=== PATIENT | female | born 1995 | race African-American/Black ===

== ENCOUNTER 2016-11-03 08:53 | Emergency (ER) | payer SELFPAY ==
--- NOTE | 2016-11-03 09:38 | ER Document Report ---
ED GI/ - General Mode of Arrival: Ambulatory Information source: Patient TRAVEL OUTSIDE OF THE [place] IN LAST 30 DAYS: No - HPI Patient complains to provider of: Abdominal pain <DELBERT COLON - Last Filed: 11/03/16 09:33> <NATASHA STAFFORD - Last Filed: 11/03/16 12:31> - General Chief Complaint: Abdominal Pain Stated Complaint: STOMACH PAIN Time Seen by Provider: 11/03/16 09:29 Notes: Patient is a 20 year old female who presents to the ED with complaints of lower abdominal pain, nausea, feelings of dizziness and frequent urination x2 weeks. Patient states she feels like her mouth is very dry. Patient has had some vomiting, 3 times over the past week. Patient denies any diarrhea. Patient states this morning she is mostly dizzy, she feels off balance. She states she has fallen from the dizziness 3 times in the past week, she states she cant keep her eyes open and the room goes dark on her. Patients LMP was 10/07/16. Patient denies dysuria. Patient does add that she feels like her abdomen is more distended than normal and she has a lot of gas and more frequent bowel movement. (DELBERT COLON) - Related Data Allergies/Adverse Reactions: No Known Allergies Allergy (Verified 11/03/16 08:57) Past Medical History - General Information source: Patient - Social History Smoking Status: Unknown if Ever Smoked Family History: Reviewed & Not Pertinent Renal/ Medical History: Denies: Hx Peritoneal Dialysis <DELBERT COLON - Last Filed: 11/03/16 09:33> Review of Systems - Review of Systems Constitutional: No symptoms reported EENT: No symptoms reported Cardiovascular: See HPI, Dizziness Respiratory: No symptoms reported Gastrointestinal: See HPI, Abdomen distended, Abdominal pain, Nausea, Vomiting. denies: Diarrhea Genitourinary: See HPI, Frequency. denies: Dysuria Female Genitourinary: No symptoms reported Musculoskeletal: No symptoms reported Skin: No symptoms reported Hematologic/Lymphatic: No symptoms reported Neurological/Psychological: No symptoms reported <DELBERT COLON - Last Filed: 11/03/16 09:33> Physical Exam - General General appearance: Appears well, Alert In distress: None - HEENT Head: Normocephalic, Atraumatic Eyes: Normal Extraocular movements intact: Yes Pupils: PERRL - Respiratory Respiratory status: No respiratory distress Breath sounds: Normal - Cardiovascular Rhythm: Regular Heart sounds: Normal auscultation Murmur: No - Abdominal Inspection: Normal Distension: No distension Tenderness: Tender - superpubic - Back Back: Normal - Extremities General upper extremity: Normal inspection, Normal ROM General lower extremity: Normal inspection, Normal ROM. No: Edema - Neurological Neuro grossly intact: Yes - Psychological Associated symptoms: Normal affect, Normal mood - Skin Skin Temperature: Warm Skin Moisture: Dry Skin Color: Normal <DELBERT COLON - Last Filed: 11/03/16 09:33> - Vital signs Vitals: Temp Pulse Resp BP Pulse Ox 97.9 F 82 14 137/84 H 98 11/03/16 08:57 11/03/16 08:57 11/03/16 08:57 11/03/16 08:57 11/03/16 08:57 Course <DELBERT COLON - Last Filed: 11/03/16 09:33> - Laboratory Result Diagrams: 11/03/16 09:23 11/03/16 09:23 <NATASHA STAFFORD - Last Filed: 11/03/16 12:31> - Re-evaluation Re-evalutation: 11/03/16 11:08 Pleasant 20-year-old female comes in with some nausea and lower abdominal discomfort. She also reports feeling "dizzy". It was difficult to pin down whether she meant vertigo or near syncopal. With further discussion, it appears she simply means that she feels tired, fatigued. Orthostatics were performed at 11:05 AM by myself. Blood pressure was stable with no drop - heart rate went from 66 to approximately 76. Laboratory testing is unremarkable with normal urine, with no sign of infection. Patient is not . We will obtain an x-ray of the abdomen to further evaluate her sense of distention. 11/03/16 12:27 Abdominal x-ray is unremarkable with a normal gas pattern no obvious masses, and no obstruction. On reexamination, the patient is standing in the room and appears comfortable. Her father is now with her. I have discussed the results with her and her father and the follow-up plan. She has an appointment on Sunday with her primary physician. I will write a prescription for Zofran for nausea. Patient does not feel comfortable going to work currently. I will write a work note through this weekend. I have advised him to return to the emergency department if they have any further urgent concerns. (NATASHA STAFFORD) - Vital Signs Vital signs: Temp Pulse Resp BP Pulse Ox 97.9 F 82 14 123/86 H 100 11/03/16 08:57 11/03/16 08:57 11/03/16 08:57 11/03/16 11:06 11/03/16 09:30 - Laboratory Laboratory results interpreted by me: 11/03/16 11/03/16 09:23 09:51 Total Protein 8.6 H Ur Leukocyte Esterase TRACE H Discharge <DELBERT COLON - Last Filed: 11/03/16 09:33> <NATASHA STAFFORD - Last Filed: 11/03/16 12:31> - Discharge Clinical Impression: Nausea & vomiting, Weakness Condition: Good Disposition: HOME, SELF-CARE Instructions: Vomiting ([facility]), Abdominal Pain ([facility]) Additional Instructions: Follow-up with your primary physician on Sunday as already scheduled. Take Zofran if needed for nausea. Continue to drink plenty of water and eat a simple bland diet. Return to the emergency department if you have worsening pain, if you have fever, if you are unable to eat or drink, or if you have other urgent concerns. Prescriptions: Ondansetron HCl [Zofran 4 mg Tablet] 1 - 2 tab PO Q4H PRN #10 tablet PRN Reason: Forms: Return to Work Scribe Attestation: 11/03/16 12:30 I personally performed the services described in the documentation, reviewed and edited the documentation which was dictated to the scribe in my presence, and it accurately records my words and actions. (NATASHA STAFFORD) Scribe Documentation - Scribe Written by Luciano:: luciano Marquez, 11/03/2016, 932 acting as scribe for :: Yoanna <DELBERT COLON - Last Filed: 11/03/16 09:33>
[2016-11-03 09:45] LABS: ABSOLUTE BASOPHILS # (AUTO) 0.1 10^3/uL (0.0-0.2); ABSOLUTE EOSINOPHILS # (AUTO) 0.2 10^3/uL (0.0-0.6); ABSOLUTE MONOCYTES (AUTO) 0.8 10^3/uL (0.1-1.4); ABSOLUTE NEUT (AUTO) 5.7 10^3/uL (1.7-8.2); BASOPHILS % (AUTO) 1.3 % (0-2); HEMATOCRIT 38.8 % (36.0-47.0); HGB HCT DIFFERENCE 0.2; LYMPHOCYTES % (AUTO) 22.4 % (13-45); MEAN CORPUSCULAR HEMOGLOBIN 28.2 pg (27.0-33.4); MEAN CORPUSCULAR HGB CONC 33.4 g/dL (32.0-36.0); MEAN CORPUSCULAR VOLUME 84 fl (80-97); MONOCYTES % (AUTO) 9.6 % (3-13); RED CELL DISTRIBUTION WIDTH 13.1 % (11.5-14.0); SEGMENTED NEUTROPHILS % (AUTO) 64.7 % (42-78); WHITE BLOOD COUNT 8.8 10^3/uL (4.0-10.5)
[2016-11-03 09:56] LABS: ALANINE AMINOTRANSFERASE 18 U/L (5-35); ALBUMIN 4.6 g/dL (3.7-5.6); ALKALINE PHOSPHATASE 80 U/L (50-135); ANION GAP 10 (5-19); ASPARTATE AMINO TRANSFERASE 21 U/L (5-30); BILIRUBIN,DIRECT 0.4 mg/dL (0.0-0.4); BILIRUBIN,TOTAL 0.7 mg/dL (0.2-1.3); BLOOD UREA NITROGEN 10 mg/dL (7-20); CALCIUM 9.7 mg/dL (8.4-10.2); CARBON DIOXIDE 24 mmol/L (22-30); CHLORIDE 106 mmol/L (98-107); CREATININE RESULT 0.76 mg/dL (0.52-1.25); GLUCOSE 99 mg/dL (75-110); SODIUM 140.1 mmol/L (137-145); TOTAL PROTEIN 8.6 g/dL (6.3-8.2)
[2016-11-03 10:10] LABS: APPEARANCE,URINE CLEAR; BILIRUBIN,URINE NEGATIVE (NEGATIVE); GLUCOSE, URINE NEGATIVE (NEGATIVE); KETONES,URINE NEGATIVE (NEGATIVE); LEUKOCYTE ESTERASE,URINE TRACE (NEGATIVE); NITRITE,URINE NEGATIVE (NEGATIVE); PROTEIN,URINE NEGATIVE (NEGATIVE); URINE SPECIFIC GRAVITY 1.008; UROBILINOGEN,URINE NEGATIVE mg/dL (<2.0)
--- NOTE | 2016-11-03 11:54 | RADIOLOGY REPORT (SQ) ---
EXAM DESCRIPTION: ABDOMEN 2 VIEWS COMPLETED DATE/TIME: 11/03/2016 11:32 am REASON FOR STUDY: Abdominal discomfort and distention COMPARISON: None. NUMBER OF VIEWS: Two views. TECHNIQUE: Supine and erect radiographic images of the abdomen acquired. LIMITATIONS: None. FINDINGS: FREE AIR: None. No abnormal gas collections. LUNG BASES: Clear. BOWEL GAS PATTERN: Nonobstructive pattern. No dilated loops or air fluid levels. CALCIFICATIONS: No suspicious calcifications. SOFT TISSUES: No gross mass or suggestion of organomegaly. HARDWARE: None in the abdomen. BONES: No acute fracture. No worrisome bone lesions. OTHER: No other significant finding. IMPRESSION: NO RADIOGRAPHIC EVIDENCE FOR ACUTE ABDOMINAL DISEASE. TECHNICAL DOCUMENTATION: JOB ID: [id number] [email or web address]- All Rights Reserved
[2016-11-03 12:43] VITALS: BP 119/84
== END 2016-11-03 12:52 | disposition home or self-care (01) ==
LOC: ER 08:53
DX: R10.30 Lower abdominal pain, unspecified (principal); R53.1 Weakness; R42 Dizziness and giddiness; R35.0 Frequency of micturition; R11.2 Nausea with vomiting, unspecified; R68.2 Dry mouth, unspecified; R19.4 Change in bowel habit; R14.0 Abdominal distension (gaseous); Z91.81 History of falling
CPT/HCPCS: 36415; 74020; 80053; 81001; 81025; 85025; 99284

== ENCOUNTER 2016-11-25 07:44 | Emergency (ER) | payer SELFPAY ==
--- NOTE | 2016-11-25 08:36 | ER Document Report ---
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 Patient denies any fevers or chills currently but noted she had a fever on Sunday. Patient denies any vomiting episodes. Patient notes multiple people in the care facility do have C. difficile TRAVEL OUTSIDE OF THE [place] IN LAST 30 DAYS: No - HPI Onset: Other - 3 days Onset/Duration: Intermittent Quality of pain: Cramping Severity: Mild Pain Level: 1 Associated symptoms: Diarrhea Exacerbated by: Denies Relieved by: Denies Similar symptoms previously: No Recently seen / treated by doctor: No - Related Data Allergies/Adverse Reactions: No Known Allergies Allergy (Verified 11/25/16 08:28) Past Medical History - Social History Smoking Status: Never Smoker Cigarette use (# per day): No Chew tobacco use (# tins/day): No Smoking Education Provided: No Frequency of alcohol use: None Drug Abuse: None Family History: Reviewed & Not Pertinent Renal/ Medical History: Denies: Hx Peritoneal Dialysis Surgical Hx: Negative - Immunizations Hx Diphtheria, Pertussis, Tetanus Vaccination: Yes Review of Systems - Review of Systems Notes: REVIEW OF SYSTEMS: CONSTITUTIONAL : Denies fever, chills, or sweats. Denies recent illness. EENT: Denies eye, ear, throat, or mouth pain or symptoms. Denies nasal or sinus congestion or discharge. Denies throat, tongue, or mouth swelling or difficulty swallowing. CARDIOVASCULAR: Denies chest pain. Denies palpitations or racing or irregular heart beat. Denies ankle edema. RESPIRATORY: Denies cough, cold, or chest congestion. Denies shortness of breath, difficulty breathing, or wheezing. GASTROINTESTINAL: Admits to diarrhea GENITOURINARY: Denies difficulty urinating, painful urination, burning, frequency, blood in urine, or discharge. FEMALE GENITOURINARY: Denies vaginal bleeding, heavy or abnormal periods, irregular periods. Denies vaginal discharge or odor. MUSCULOSKELETAL: Denies back or neck pain or stiffness. Denies joint pain or swelling. SKIN: Denies rash, lesions or sores. HEMATOLOGIC : Denies easy bruising or bleeding. LYMPHATIC: Denies swollen, enlarged glands. NEUROLOGICAL: Denies confusion or altered mental status. Denies passing out or loss of consciousness. Denies dizziness or lightheadedness. Denies headache. Denies weakness or paralysis or loss of use of either side. Denies problems with gait or speech. Denies sensory loss, numbness, or tingling. Denies seizures. PSYCHIATRIC: Denies anxiety or stress. Denies depression, suicidal ideation, or homicidal ideation. ALL OTHER SYSTEMS REVIEWED AND NEGATIVE. PHYSICAL EXAMINATION: GENERAL: Well-appearing, well-nourished and in no acute distress. HEAD: Atraumatic, normocephalic. EYES: Pupils equal round and reactive to light, extraocular movements intact, conjunctiva are normal. ENT: Nares patent, oropharynx clear without exudates. Moist mucous membranes. NECK: Normal range of motion, supple without lymphadenopathy LUNGS: Breath sounds clear to auscultation bilaterally and equal. No wheezes rales or rhonchi. HEART: Regular rate and rhythm without murmurs ABDOMEN: Soft, nontender, nondistended abdomen. No guarding, no rebound. No masses appreciated. Female : deferred Musculoskeletal: Normal range of motion, no pitting or edema. No cyanosis. NEUROLOGICAL: Cranial nerves grossly intact. Normal speech, normal gait. Normal sensory, motor exams PSYCH: Normal mood, normal affect. SKIN: Warm, Dry, normal turgor, no rashes or lesions noted. Dictation was performed using [employer] voice recognition software Physical Exam - Vital signs Vitals: Temp Pulse Resp BP Pulse Ox 98.7 F 79 16 128/81 H 96 11/25/16 07:49 11/25/16 07:49 11/25/16 07:49 11/25/16 07:49 11/25/16 07:49 Course - Re-evaluation Re-evalutation: 11/25/16 08:36 Patient overall looks quite well, she is in no distress playing on her cell phone however she has been exposed to C. difficile therefore stool culture has been ordered 11/25/16 09:11 Patient is unable to have a bowel movement here will discharge home with container After performing a Medical Screening Examination, I estimate there is LOW risk for ACUTE APPENDICITIS, BOWEL OBSTRUCTION, ACUTE CHOLECYSTITIS, PERFORATED DIVERTICULITIS, INCARCERATED HERNIA, PANCREATITIS, PELVIC INFLAMMATORY DISEASE, PERFORATED ULCER, ECTOPIC , or TUBO-OVARIAN ABSCESS, thus I consider the discharge disposition reasonable. Also, there is no evidence or peritonitis , sepsis, or toxicity. I have reevaluated this patient multiple times and no significant life threatening changes are noted. The patient and I have discussed the diagnosis and risks, and we agree with discharging home with close follow-up with the understanding that symptoms and presentations can change. We also discussed returning to the Emergency Department immediately if new or worsening symptoms occur. We have discussed the symptoms which are most concerning (e.g., bloody stool, fever, changing or worsening pain, vomiting) that necessitate immediate return. - Vital Signs Vital signs: Temp Pulse Resp BP Pulse Ox 98.7 F 79 16 128/81 H 96 11/25/16 07:49 11/25/16 07:49 11/25/16 07:49 11/25/16 07:49 11/25/16 07:49 Discharge - Discharge Clinical Impression: Diarrhea Qualifiers: Diarrhea type: unspecified type Qualified Code(s): R19.7 - Diarrhea, unspecified Condition: Stable Disposition: HOME, SELF-CARE Instructions: Diarrhea, Nonspecific ([facility]) Additional Instructions: Return immediately if there are any other concerns Prescriptions: Dicyclomine HCl [Bentyl 20 mg Tablet] 20 mg PO QID #40 tablet Forms: Follow-Up Laboratory Testing, Return to Work
[2016-11-25 09:33] VITALS: BP 118/74
== END 2016-11-25 09:25 | disposition home or self-care (01) ==
LOC: ER 07:44
DX: R19.7 Diarrhea, unspecified (principal); R10.9 Unspecified abdominal pain
CPT/HCPCS: 99284

== ENCOUNTER 2017-02-02 19:58 | Emergency (ER) | payer OTHER ==
[2017-02-02] MEDS ORDERED: IBUPROFEN 600 MG TABLET PO ONE (21:23)
--- NOTE | 2017-02-02 21:25 | ER Document Report ---
HPI - HPI Pain Level: 3 Notes: Patient is a 21-year-old female no significant past medical history who presents the ED complaining of nasal congestion/discharge, postnasal drip, left ear pain, intermittent sore throat, dry nonproductive cough 3 days. Patient has been using Tylenol with minimal relief. Patient states that she has noticed that her glands on her left side have become swollen, but have improved over the last couple days. Patient states that she is still eating and drinking without any difficulties. She still urinating normally and having normal bowel movements. P atient denies any recent illness otherwise. She has not had any hoarseness or drooling. Denies any headache, fever, neck pain, chest pain, palpitations, syncope, shortness of breath, wheeze, dyspnea, abdominal pain, nausea/vomiting/diarrhea, dysuria, hematuria, or rash. - ROS Notes: REVIEW OF SYSTEMS: CONSTITUTIONAL : Denies fever, chills, or sweats. Denies recent illness. EENT: see hpi CARDIOVASCULAR: Denies chest pain. Denies palpitations or racing or irregular heart beat. Denies ankle edema. RESPIRATORY: see hpi. Denies shortness of breath, difficulty breathing, or wheezing. GASTROINTESTINAL: Denies abdominal pain or distention. Denies nausea, vomiting , or diarrhea. Denies blood in vomitus, stools, or per rectum. Denies black, tarry stools. Denies constipation. GENITOURINARY: Denies difficulty urinating, painful urination, burning, frequency, blood in urine, or discharge. MUSCULOSKELETAL: Denies back or neck pain or stiffness. Denies joint pain or swelling. SKIN: Denies rash, lesions or sores. NEUROLOGICAL: Denies dizziness or lightheadedness. Denies headache. Denies problems with gait or speech. Denies seizures. ALL OTHER SYSTEMS REVIEWED AND NEGATIVE. Dictation was performed using [employer] voice recognition software Past Medical History - Social History Smoking Status: Never Smoker Family History: Reviewed & Not Pertinent Renal/ Medical History: Denies: Hx Peritoneal Dialysis - Immunizations Hx Diphtheria, Pertussis, Tetanus Vaccination: Yes Vertical Provider Document - CONSTITUTIONAL Agree With Documented VS: Yes Notes: PHYSICAL EXAMINATION: GENERAL: Well-appearing, well-nourished and in no acute distress. A&Ox4 HEAD: Atraumatic, normocephalic. EYES: Pupils equal round and reactive to light, extraocular movements intact, sclera anicteric, conjunctiva are normal. ENT: EAC clear b/l. TM's intact b/l without erythema, fluid, or perforation. Nares patent and with clear discharge. oropharynx clear without exudates. No tonsilar hypertrophy or erythema. Moist mucous membranes. No sinus tenderness. No drooling or hoarseness. Uvula midline. No palatine shift. No tongue protrusion or airway compromise. NECK: Normal range of motion, supple without lymphadenopathy. No rigidity/ meningismus LUNGS: Breath sounds clear to auscultation bilaterally and equal. No wheezes rales or rhonchi. HEART: Regular rate and rhythm without murmurs, rubs, gallops. ABDOMEN: Soft, nontender, nondistended abdomen. No guarding, no rebound. No masses appreciated. Normal bowel sounds present. No CVA tenderness bilaterally. No hepatosplenomegaly. Musculoskeletal: FROM to passive/active. Strength 5+/5. Extremities: No cyanosis, clubbing, or edema b/l. Peripheral pulses 2+. Capillary refill less than 3 seconds. NEUROLOGICAL: Normal speech, normal gait. Normal sensory, motor exams PSYCH: Normal mood, normal affect. SKIN: Warm, Dry, normal turgor, no rashes or lesions noted. - INFECTION CONTROL TRAVEL OUTSIDE OF THE [place] IN LAST 30 DAYS: No - RESPIRATORY O2 Sat by Pulse Oximetry: 98 Course - Re-evaluation Re-evalutation: 02/02/17 21:24 Patient is an afebrile, well-hydrated, 21-year-old female who presents to the ED with acute URI, suspect viral at this time. Vitals are stable. PE is otherwise unremarkable. No imaging or lab testing warranted based on H&P today. Low suspicion for any meningitis, sepsis, peritonsillar/pharyngeal abscess, respiratory compromise, Javy's, or other emergent systemic condition at this time. Patient is aware this condition can change from initial presentation and she needs to monitor symptoms closely. Conservative measures otherwise for symptoms. Recheck with your PCM in 3-5 days. Return to the ED with any worsening/concerning symptoms otherwise as reviewed in discharge. Patient is in agreement. - Vital Signs Vital signs: Temp Pulse Resp BP Pulse Ox 98.3 F 91 19 120/81 98 02/02/17 20:06 02/02/17 20:06 02/02/17 20:06 02/02/17 20:06 02/02/17 20:06 Discharge - Discharge Clinical Impression: Acute URI Condition: Stable Disposition: HOME, SELF-CARE Instructions: Upper Respiratory Illness ([facility]) Additional Instructions: Maintain adequate fluid intake Take meds as directed tylenol/ibuprofen as needed over the counter cold medication as needed for symptoms Humidified air may help F/u: with your PCM in 3-5 days for a recheck Return to the ED with any fever, worsening pain, chest pain, palpitations, syncope, worsening GUERRA, neck pain/stiffness, shortness of breath, wheezing, drooling, trouble swallowing/breathing, abdominal pain, n/v/d, rash, or worsening/concerning symptoms otherwise. Referrals: ALEXANDREA TAYLOR MD [Primary Care Provider] - Follow up in 3-5 days
[2017-02-02 21:52] VITALS: BP 122/87
== END 2017-02-02 21:55 | disposition home or self-care (01) ==
LOC: ER 19:58
DX: J06.9 Acute upper respiratory infection, unspecified (principal); R09.81 Nasal congestion; R09.82 Postnasal drip; H92.02 Otalgia, left ear; J02.9 Acute pharyngitis, unspecified; R05 Cough
CPT/HCPCS: 99283

== ENCOUNTER 2017-02-08 08:38 | Emergency (ER) | payer OTHER ==
--- NOTE | 2017-02-08 09:16 | ER Document Report ---
ED General - General Chief Complaint: Sore Throat Stated Complaint: SORE THROAT Time Seen by Provider: 02/08/17 09:13 Mode of Arrival: Ambulatory Information source: Patient Notes: Patient is a 21 year old female who presents with sore throat, non-productive cough and congestion that started last week. She was seen last week for the same and diagnosed with a viral URI and given supportive treatments. She states today that she awoke and had lower lip swelling and swelling to the side of her face. She states this was not present to begin with. She denies any dental pain associated. She states it is painful to swallow but is tolerating her own secretions and denies any drooling. She states she did eat shrimp yesterday and has had it before without difficulty but this is the only change in diet she has noticed. She denies any changes in medications either. She has not tried any medicine for this at home including Benadryl. Denies any fever, chills, difficulty breathing, shortness of breath, difficulty swallowing , chest pain, vomiting. TRAVEL OUTSIDE OF THE [place] IN LAST 30 DAYS: No - Related Data Allergies/Adverse Reactions: No Known Allergies Allergy (Verified 02/08/17 08:38) Past Medical History - Social History Smoking Status: Never Smoker Chew tobacco use (# tins/day): No Frequency of alcohol use: None Drug Abuse: None Family History: Reviewed & Not Pertinent Patient has suicidal ideation: No Patient has homicidal ideation: No Renal/ Medical History: Denies: Hx Peritoneal Dialysis - Immunizations Hx Diphtheria, Pertussis, Tetanus Vaccination: Yes Review of Systems - Review of Systems Constitutional: See HPI EENT: See HPI Cardiovascular: No symptoms reported Respiratory: See HPI Gastrointestinal: No symptoms reported Genitourinary: No symptoms reported Female Genitourinary: No symptoms reported Musculoskeletal: No symptoms reported Skin: No symptoms reported Hematologic/Lymphatic: No symptoms reported Neurological/Psychological: No symptoms reported Physical Exam - Vital signs Vitals: Temp Pulse Resp BP Pulse Ox 98.6 F 86 16 118/74 98 02/08/17 08:39 02/08/17 08:39 02/08/17 08:39 02/08/17 08:39 02/08/17 08:39 - Notes Notes: PHYSICAL EXAM: CONSTITUTIONAL: Alert and oriented, well-appearing and in no acute distress. No signs are stable. Patient is speaking in full sentences without difficulty. HENT: Normocephalic, atraumatic. Ear canals without erythema or foreign body, TMs pearly mathews with good bony landmarks. Nares clear without erythema, septal hematoma or deviation, airway patent. Oropharynx clear without erythema, tonsilar exudate or malocclusion. Trachea midline. Uvula midline. Moist mucous membranes. Edema to lower lip but no oropharynx edema noted. Patient is tolerating her own secretions. EYES: Pupils equal round and reactive to light, EOM intact. Sclera anicteric, conjunctiva are normal. No entrapment. NECK: supple without lymphadenopathy. No midline tenderness or paraspinous muscle spasms. No step-offs or deformities. ROM intact. No nuchal rigidity, negative Kernig's and Brudzinski's. HEART: Regular rate and rhythm without murmurs. LUNGS: CTAB and equal. No wheezes, rales or rhonchi. EXTREMITIES: Normal range of motion, no pitting edema. No cyanosis. Cap Refill < 3 seconds. NEURO: Cranial nerves grossly intact. Normal sensory/motor exams. PSYCH: Normal mood, normal affect. SKIN: Warm and dry. Normal turgor. No rashes or lesions noted. Course - Re-evaluation Re-evalutation: 02/08/17 09:27 Patient seen and examined. Patient is alert and oriented, vital signs are stable, she is afebrile and not tachycardic. She is speaking in full sentences without difficulty and tolerating her own secretions. She denies any difficulty breathing or vomiting. The swelling to lip and left side of face is consistent with edema associated with allergic reaction. Could be that shrimp is a implicating factor here. Given Benadryl, H2 aimee and steroids here. Patient states she is feeling better after medications. Improvement of swelling to lip noted. Again patient did not have any respiratory distress, difficulty breathing, swallowing, rash or vomiting while here. Do not feel this is an anaphylaxis reaction. Advised that she should avoid shellfish in the event that a repeat event could be worse than this one. Patient monitored for some time in the emergency department and again showed no signs of distress. Will discharge with prescriptions for histamine aimee and steroids. Return precautions given. At this time, will discharge with return precautions and follow-up recommendations. Verbal discharge instructions given at the bedside and opportunity for questions given. Medication warnings reviewed. Patient is in agreement with this plan and has verbalized understanding of return precautions and the need for primary care follow-up in the next 24-72 hours. - Vital Signs Vital signs: Temp Pulse Resp BP Pulse Ox 97.9 F 75 18 115/77 98 02/08/17 11:44 02/08/17 11:44 02/08/17 11:44 02/08/17 11:44 02/08/17 11:44 Discharge - Discharge Clinical Impression: Viral URI with cough Allergic reaction Qualifiers: Encounter type: initial encounter Qualified Code(s): T78.40XA - Allergy, unspecified, initial encounter Condition: Stable Disposition: HOME, SELF-CARE Additional Instructions: ACUTE ALLERGIC REACTION: Your symptoms are due to an allergic reaction. Allergy can cause hives, swelling of the hands, feet, and face, hoarseness, and difficulty swallowing or breathing. It may be due to exposure to medication, animal dander, foods, infection, or insect bites. Medication is a common cause, even when prior use of this same medication caused no problems. Acute treatment may include adrenalin and antihistamines. Usually, the specific allergic agent can't be identified unless repeated episodes occur. Home treatment includes the following: (1) Stop any suspicious medications. This will be discussed with you. (2) Oral antihistamines for the next four to five days. Example, diphenhydramine (Benadryl) every four hours. (3) You may also use cimetidine (Tagamet), ranitidine (Zantac), or famotidine ( Pepcid) every four hours if diphenhydramine is not controlling itching and hives. (4) Avoid aspirin until the hives completely disappear. (5) Avoid hot baths or showers until the hives are completely gone. Call the doctor if faintness, difficulty swallowing, tightness in the chest , or wheezing occurs. STEROID MEDICATION: You have been given a medicine of the cortisone/steroid class. This medication is used to control inflammation or allergy. It is usually only given for a short period of time, until the acute process subsides. There are usually no side effects from short-term use of cortisone-like medications. Some persons feel an increased sense of well-being and are not sleepy at bedtime. Long-term use of cortisone medications is best avoided, unless required for a severe condition. If your condition does not remit, or relapses after the course of corticosteroid medication, you should consult your physician. ACID-SUPPRESSING MEDICATION: You have a prescription for medicine which reduces the stomach's secretion of acid. Examples include Zantac, Tagament, and Pepcid. These drugs are often used to allow healing of ulcers or esophagitis. They may be needed to prevent recurrence of ulcers in some patients, or to prevent damage from acid reflux in the esophagus. Take all medication as prescribed, even after the pain is gone. Regular antacids may be added as needed if you have symptoms while taking this medicine. These medications sometimes are prescribed for allergic reactions because they have anti-histaminic effects and relieve the rash and itching of the reaction. There are usually no side effects from this medication. But, in rare cases and particularly in the elderly, serious problems can occur. Contact your doctor if there is fever, rash, hallucinations, confusion, or unusual bruising. Contact your doctor at once if you develop lightheadedness, black or bloody stool, or bloody vomitus. ANTIHISTAMINES: An antihistamine has been given and/or prescribed to control your symptoms. Antihistamines are used for many reasons, including itching, watering eyes, runny nose, allergic swelling, hives, and insect stings. Antihistamines may cause drowsiness, especially with the first dose. Do not operate machinery or drive while under the effects of the medication. Other common side effects include dry mouth and eyes. In older persons, antihistamines can occasionally cause urinary retention, constipation, and trouble focusing the eyes. Do not combine the medication with alcohol, or with any other medication without talking to your doctor. USE OF DIPHENHYDRAMINE: The use of diphenhydramine (Benadryl) has been recommended to control allergic symptoms. The 25 mg strength is available over- the-counter, as well as the elixir. This antihistamine is used for many symptoms. It's useful for itching, watering eyes and nose, allergic swelling, hives, and insect stings. The medication can be repeated four times daily. Age Elixir (12.5 mg/tsp) 25 mg pill 2-3 yr 1/2 tsp 4-8 yr 1 tsp 9-14 yr 2 tsp one tab adult 1-2 tabs Antihistamines may cause drowsiness, especially with the first dose. Do not operate machinery or drive while under the effects of the medication. Do not combine the medication with alcohol, or with any other medication without talking to your doctor. FOLLOW-UP CARE: If you have been referred to a physician for follow-up care, call the physician s office for an appointment as you were instructed or within the next two days. If you experience worsening or a significant change in your symptoms, notify the physician immediately or return to the Emergency Department at any time for re-evaluation. UPPER RESPIRATORY ILLNESS: You have a viral infection of the respiratory passages -- a "cold." This common infection causes nasal congestion, drainage, and often sore throat and cough. It is highly contagious. The disease usually lasts about 10 to 14 days. There is no "cure" for the viral infection -- it must run its course. If there is a complication, such as bacterial infection in the nose, sinuses, middle ear, or bronchial tubes, antibiotics may be required. The antibiotics won't affect the virus. Drink plenty of fluids. A humidifier may help. An expectorant medication or decongestant may make you more comfortable. Use acetaminophen or ibuprofen for fever or aches. See the doctor if fever persists over two days, if there is any significant worsening of your symptoms, or if you simply fail to improve as expected. BRONCHOSPASM: You have tightness in the bronchial tubes, called bronchospasm. This often occurs with bronchial infections. Allergies, inhaled chemicals, and polluted or cold air can also provoke bronchospasm. It's more likely in patients with asthma in the family. Emergency treatment of bronchospasm may include adrenaline shots or bronchodilator aerosol. You may feel lightheaded and have a rapid pulse for an hour or two. Rest and get plenty of fluids. At home, we'll treat you with a bronchodilator inhaler. Antibiotics and corticosteroids may be required for some patients. Until you recover, avoid chemical fumes, dusts, pollens, and exercising in very cold or dry air. If you smoke, stop now!! If you develop a fever, increased wheezing, chest pain, or severe shortness of breath, you should contact the doctor immediately. STEROID MEDICATION: You have been given an injection of or oral medicine of the cortisone/ steroid class. This medication is used to control inflammation or allergy. Reinaldo t is usually only given for a short period of time, until the acute process subsides. There are usually no side effects from short-term use of cortisone-like medications. Some persons feel an increased sense of well-being and are not sleepy at bedtime. Long-term use of cortisone medications is best avoided, unless required for a severe condition. If your condition does not remit, or relapses after the course of corticosteroid medication, you should consult your physician. USE OF ACETAMINOPHEN (Tylenol): Acetaminophen may be taken for pain relief or fever control. It's much safer than aspirin, offering a wider range of "safe" dosages. It is safe during . Some brand names are Tylenol, Panadol, Datril, Anacin 3, Tempra, and Liquiprin. Acetaminophen can be repeated every four hours. The following are maximum recommended dosages: >89 pounds or adults 650 mg to 900 mg Acetaminophen can be repeated every four hours. Maximum dose not to exceed 4000 mg a day. SMOKING: If you smoke, you should stop smoking. The tar and chemicals in cigarette smoke are harmful. Smoking has been shown to cause: emphysema chronic bronchitis lung cancer mouth and throat cancer stomach and pancreas cancer premature aging defects In addition, smoking increases ear and lung infections in children of smokers. FOLLOW-UP CARE: If you have been referred to a physician for follow-up care, call the physician s office for an appointment as you were instructed or within the next two days. If you experience worsening or a significant change in your symptoms, notify the physician immediately or return to the Emergency Department at any time for re-evaluation. Prescriptions: Amox Tr/Potassium Clavulanate [Augmentin 875-125 Tablet] 1 tab PO BID 7 Days tablet Diphenhydramine HCl [Benadryl] 25 mg PO Q6H PRN #15 capsule PRN Reason: Itching Prednisone [Deltasone 20 mg Tablet] 3 tab PO DAILY 5 Days tablet Ranitidine HCl [Zantac 150 mg Tablet] 150 mg PO BID #30 tablet Forms: Return to Work
[2017-02-08] MEDS ORDERED: DIPHENHYDRAMINE HCL 50 MG CAPSULE PO ONE (09:26)
[2017-02-08] MEDS ORDERED: RANITIDINE HCL SYRUP 150 MG/10 ML UDCUP PO ONE (09:26)
[2017-02-08] MEDS ORDERED: PREDNISONE 20 MG TABLET PO ONE (10:37)
[2017-02-08 11:45] VITALS: BP 115/77
== END 2017-02-08 11:45 | disposition home or self-care (01) ==
LOC: ER 08:38
DX: J02.8 Acute pharyngitis due to other specified organisms (principal); B97.89 Other viral agents as the cause of diseases classified elsewhere; R05 Cough; T78.40XA Allergy, unspecified, initial encounter; R22.0 Localized swelling, mass and lump, head; X58.XXXA Exposure to other specified factors, initial encounter
CPT/HCPCS: 99283; 87070; 87880; 87077; J7512; J3490

== ENCOUNTER 2017-03-17 17:11 | Emergency (ER) | payer OTHER ==
--- NOTE | 2017-03-17 18:05 | ER Document Report ---
ED Medical Screen (RME) - General Chief Complaint: Abdominal Pain Stated Complaint: STOMACH PAIN Time Seen by Provider: 03/17/17 18:01 Mode of Arrival: Ambulatory Information source: Patient TRAVEL OUTSIDE OF THE [place] IN LAST 30 DAYS: No - HPI Notes: 03/17/17 18:03 21-year-old female with LMP January 11 presents with lower abdominal pain for the last day. Pain is in the lower quadrants left and right less so in the middle. She has had some mild spotting of blood. Denies diarrhea but has been having some intermittent nausea and vomiting. No dysuria or hematuria. No upper abdominal discomfort. She has taken multiple home tests that are positive. She is on Depakote but states normally she has fairly regular periods. Pain is sharp in nature. There is no back discomfort. No dysuria or hematuria. 03/17/17 18:04 03/17/17 18:05 I have greeted and performed a rapid initial assessment of this patient. A comprehensive ED assessment with additional diagnostic/treatment considerations , analysis of diagnostic testing and completion of the medical decision making process will be conducted by additional ED providers. - Related Data Allergies/Adverse Reactions: No Known Allergies Allergy (Verified 02/08/17 08:38) Past Medical History Renal/ Medical History: Denies: Hx Peritoneal Dialysis - Immunizations Hx Diphtheria, Pertussis, Tetanus Vaccination: Yes Physical Exam - Vital signs Vitals: Temp Pulse Resp BP Pulse Ox 98.9 F 109 H 14 136/81 H 97 03/17/17 17:27 03/17/17 17:27 03/17/17 17:27 03/17/17 17:27 03/17/17 17:27 Course - Vital Signs Vital signs: Temp Pulse Resp BP Pulse Ox 98.9 F 109 H 14 136/81 H 97 03/17/17 17:27 03/17/17 17:27 03/17/17 17:27 03/17/17 17:27 03/17/17 17:27
[2017-03-17 19:14] LABS: ABSOLUTE BASOPHILS # (AUTO) 0.1 10^3/uL (0.0-0.2); ABSOLUTE EOSINOPHILS # (AUTO) 0.2 10^3/uL (0.0-0.6); ABSOLUTE LYMPHOCYTES (AUTO) 2.1 10^3/uL (0.5-4.7); ABSOLUTE MONOCYTES (AUTO) 1.2 10^3/uL (0.1-1.4); ABSOLUTE NEUT (AUTO) 11.9 10^3/uL (1.7-8.2); BASOPHILS % (AUTO) 0.6 % (0-2); EOSINOPHILS % (AUTO) 1.1 % (0-6); HEMOGLOBIN 12.7 g/dL (12.0-15.5); LYMPHOCYTES % (AUTO) 13.5 % (13-45); MEAN CORPUSCULAR HEMOGLOBIN 27.8 pg (27.0-33.4); MEAN CORPUSCULAR HGB CONC 33.5 g/dL (32.0-36.0); MEAN CORPUSCULAR VOLUME 83 fl (80-97); MONOCYTES % (AUTO) 7.8 % (3-13); PLATELET COUNT 335 10^3/uL (150-450); RED BLOOD COUNT 4.58 10^6/uL (3.72-5.28); RED CELL DISTRIBUTION WIDTH 13.3 % (11.5-14.0); TOTAL CELLS COUNTED % (AUTO) 100 %; WHITE BLOOD COUNT 15.4 10^3/uL (4.0-10.5)
[2017-03-17 19:31] LABS: APPEARANCE,URINE SLIGHTLY-CLOUDY; BILIRUBIN,URINE NEGATIVE (NEGATIVE); COLOR,URINE YELLOW; GLUCOSE, URINE NEGATIVE (NEGATIVE); KETONES,URINE 20 mg/dL (NEGATIVE); LEUKOCYTE ESTERASE,URINE MODERATE (NEGATIVE); NITRITE,URINE NEGATIVE (NEGATIVE); PROTEIN,URINE NEGATIVE (NEGATIVE)
--- NOTE | 2017-03-17 20:37 | ER Document Report ---
ED General - General Chief Complaint: Abdominal Pain Stated Complaint: STOMACH PAIN Time Seen by Provider: 03/17/17 18:01 Mode of Arrival: Ambulatory Notes: 21-year-old female patient to the emergency department chief complaint of lower abdominal pain. Intermittent spotting. Some nausea. Thinks that she may be . No prior medical history. No prior surgeries. Not on any medications. Took 7 home tests that were positive. TRAVEL OUTSIDE OF THE [place] IN LAST 30 DAYS: No - HPI Onset: Yesterday - Related Data Allergies/Adverse Reactions: No Known Allergies Allergy (Verified 02/08/17 08:38) Past Medical History - General Information source: Patient - Social History Smoking Status: Never Smoker Chew tobacco use (# tins/day): No Frequency of alcohol use: None Drug Abuse: None Lives with: Family Family History: Reviewed & Not Pertinent Patient has suicidal ideation: No Patient has homicidal ideation: No Renal/ Medical History: Denies: Hx Peritoneal Dialysis - Immunizations Hx Diphtheria, Pertussis, Tetanus Vaccination: Yes Review of Systems - Review of Systems Constitutional: No symptoms reported EENT: No symptoms reported Cardiovascular: No symptoms reported Respiratory: No symptoms reported Gastrointestinal: No symptoms reported, Abdominal pain Genitourinary: No symptoms reported Female Genitourinary: No symptoms reported, , Vaginal bleeding Musculoskeletal: No symptoms reported Skin: No symptoms reported Hematologic/Lymphatic: No symptoms reported Neurological/Psychological: No symptoms reported Physical Exam - Vital signs Vitals: Temp Pulse Resp BP Pulse Ox 98.9 F 109 H 14 136/81 H 97 03/17/17 17:27 03/17/17 17:27 03/17/17 17:27 03/17/17 17:27 03/17/17 17:27 Interpretation: Normal - General General appearance: Appears well, Alert - HEENT Head: Normocephalic, Atraumatic Eyes: Normal Pupils: PERRL - Respiratory Respiratory status: No respiratory distress Chest status: Nontender Breath sounds: Normal Chest palpation: Normal - Cardiovascular Rhythm: Regular Heart sounds: Normal auscultation Murmur: No - Abdominal Inspection: Normal Distension: No distension Bowel sounds: Normal Tenderness: Nontender Organomegaly: No organomegaly - Back Back: Normal, Nontender - Extremities General upper extremity: Normal inspection, Nontender, Normal color, Normal ROM , Normal temperature General lower extremity: Normal inspection, Nontender, Normal color, Normal ROM , Normal temperature, Normal weight bearing. No: Lawson's sign - Neurological Neuro grossly intact: Yes Cognition: Normal Orientation: AAOx4 Rina Coma Scale Eye Opening: Spontaneous Rina Coma Scale Verbal: Oriented Rina Coma Scale Motor: Obeys Commands [place] Coma Scale Total: 15 Speech: Normal Motor strength normal: LUE, RUE, LLE, RLE Sensory: Normal - Psychological Associated symptoms: Normal affect, Normal mood - Skin Skin Temperature: Warm Skin Moisture: Dry Skin Color: Normal Course - Re-evaluation Re-evalutation: 03/17/17 21:34 This is a 21-year-old female well-appearing in no acute distress. RhoGam workup ordered. Ultrasound ordered. Ultrasound shows intrauterine . RhoGam given. Will give info for OB and DC at this time. - Vital Signs Vital signs: Temp Pulse Resp BP Pulse Ox 98.9 F 109 H 14 136/81 H 97 03/17/17 17:27 03/17/17 17:27 03/17/17 17:27 03/17/17 17:27 03/17/17 17:27 - Laboratory Result Diagrams: 03/17/17 18:41 Laboratory results interpreted by me: 03/17/17 03/17/17 18:41 18:41 WBC 15.4 H Absolute Neutrophils 11.9 H Urine Ketones 20 H Urine Urobilinogen 2.0 H Ur Leukocyte Esterase MODERATE H Urine HCG, Qual POSITIVE H Discharge - Discharge Clinical Impression: First trimester Abdominal pain during Qualifiers: Trimester: first trimester Qualified Code(s): O26.891 - Other specified related conditions, first trimester Disposition: HOME, SELF-CARE Instructions: Abdominal Pain ([facility]) Additional Instructions: You are . care is best started as early in as possible. If you're unsure about continuing this , you should discuss this with your physician or with email deployment specialist at [facility]. You should take only medications approved by your physician. Acetaminophen can safely be taken for minor pains. As a rule, medication for chronic conditions such as asthma or seizures can safely be continued. You should discuss with the physician every medicine you take. Any regular exercise program can be continued. Talk to your physician, however, before engaging in competitive or demanding sports. Alcohol, smoking, and "street drugs" are dangerous to your baby. Cocaine is especially dangerous. Don't use any illicit drugs! Referrals: DANYELLE LOPEZ MD [ACTIVE STAFF] - Follow up in 1 week
--- NOTE | 2017-03-17 21:55 | RADIOLOGY REPORT (SQ) ---
EXAM DESCRIPTION: U/S OB TRANSVAGINAL W/O DOP COMPLETED DATE/TIME: 03/17/2017 9:05 pm REASON FOR STUDY: + hcg, lower abd pain and spotting COMPARISON: None. TECHNIQUE: Transvaginal static and realtime grayscale images acquired of the pelvis. Additional andie cted spectral and color Doppler images recorded. All images stored on PACs. bHCG: Not ordered LIMITATIONS: None. FINDINGS: FETUS: Living intrauterine . EGA: 8 weeks, 2 days ARTURO: 10/25/2017 FHR: 153 beats per minute. SUBCHORIONIC BLEED: No SIZE OF BLEED: Not applicable. UTERUS: No masses. No anomalies. CERVICAL LENGTH: 3.0 cm Closed. RIGHT ADNEXA: Ovary not identified. No adnexal free fluid. No adnexal masses. LEFT ADNEXA: Ovary not identified. No adnexal free fluid. No adnexal masses. FREE FLUID: None. OTHER: No other significant finding. IMPRESSION: LIVING INTRAUTERINE . EGA 8 weeks, 2 days Trimester of : First - 0 to 13 weeks. TECHNICAL DOCUMENTATION: JOB ID: [id number] [employer]- All Rights Reserved
[2017-03-17 23:44] VITALS: BP 140/86
== END 2017-03-17 22:33 | disposition home or self-care (01) ==
LOC: ER 17:11
DX: O26.891 Other specified pregnancy related conditions, first trimester (principal); R10.9 Unspecified abdominal pain; R11.0 Nausea; Z3A.08 8 weeks gestation of pregnancy
CPT/HCPCS: 99284; 86900; 86901; 36415; 86850; 85025; 81025; 81001; 76817; J2790

== ENCOUNTER 2017-05-02 10:10 | Emergency (ER) | payer OTHER, MEDICAID ==
[2017-05-02] MEDS ORDERED: NORMAL SALINE 1000 ML 1,000 ML IV ONE (11:01)
--- NOTE | 2017-05-02 11:02 | ER Document Report ---
ED Medical Screen (RME) - General Chief Complaint: Fainting Stated Complaint: DIZZY Time Seen by Provider: 05/02/17 11:00 Notes: Patient states for several days she has been having "blackout spells". She states whenever she stands up she will get very lightheaded and sometimes causes her to fall down. She states she comes in today because she had an episode at work where she felt lightheaded and "blacked out". And fell down. She denies any vaginal bleeding. She states she is 14 weeks . She has had a normal ultrasound approximate 2 weeks ago she states. No chronic medical problems. She denies any significant pain or shortness of breath. TRAVEL OUTSIDE OF THE [place] IN LAST 30 DAYS: No - Related Data Allergies/Adverse Reactions: No Known Allergies Allergy (Verified 02/08/17 08:38) Past Medical History Renal/ Medical History: Denies: Hx Peritoneal Dialysis - Immunizations Hx Diphtheria, Pertussis, Tetanus Vaccination: Yes Physical Exam - Vital signs Vitals: Temp Pulse Resp BP Pulse Ox 98.1 F 96 20 115/73 98 05/02/17 10:44 05/02/17 10:44 05/02/17 10:44 05/02/17 10:44 05/02/17 10:44 Course - Vital Signs Vital signs: Temp Pulse Resp BP Pulse Ox 98.1 F 96 20 115/73 98 05/02/17 10:44 05/02/17 10:44 05/02/17 10:44 05/02/17 10:44 05/02/17 10:44 Doctor's Discharge - Discharge Referrals: KATYA STEWARD MD [Primary Care Provider] - Follow up as needed
[2017-05-02 11:53] LABS: ABSOLUTE EOSINOPHILS # (AUTO) 0.1 10^3/uL (0.0-0.6); ABSOLUTE LYMPHOCYTES (AUTO) 1.8 10^3/uL (0.5-4.7); ABSOLUTE MONOCYTES (AUTO) 1.1 10^3/uL (0.1-1.4); ABSOLUTE NEUT (AUTO) 11.4 10^3/uL (1.7-8.2); BASOPHILS % (AUTO) 0.3 % (0-2); HEMATOCRIT 37.4 % (36.0-47.0); HEMOGLOBIN 12.6 g/dL (12.0-15.5); LYMPHOCYTES % (AUTO) 12.3 % (13-45); MEAN CORPUSCULAR HEMOGLOBIN 27.9 pg (27.0-33.4); MEAN CORPUSCULAR HGB CONC 33.5 g/dL (32.0-36.0); MEAN CORPUSCULAR VOLUME 83 fl (80-97); MONOCYTES % (AUTO) 7.5 % (3-13); PLATELET COUNT 316 10^3/uL (150-450); RED CELL DISTRIBUTION WIDTH 13.3 % (11.5-14.0); SEGMENTED NEUTROPHILS % (AUTO) 78.9 % (42-78); TOTAL CELLS COUNTED % (AUTO) 100 %; WHITE BLOOD COUNT 14.4 10^3/uL (4.0-10.5)
--- NOTE | 2017-05-02 11:54 | ER Document Report ---
ED General - General Chief Complaint: Fainting Stated Complaint: DIZZY Time Seen by Provider: 05/02/17 11:00 TRAVEL OUTSIDE OF THE [place] IN LAST 30 DAYS: No - HPI Patient complains to provider of: syncope Notes: Patient states for several days she has been having "blackout spells". She states whenever she stands up she will get very lightheaded and sometimes causes her to fall down. She states she comes in today because she had an episode at work where she felt lightheaded and "blacked out". And fell down. She denies any vaginal bleeding. She states she is 14 weeks . She has had a normal ultrasound approximate 2 weeks ago she states. No chronic medical problems. She denies any significant pain or shortness of breath. - Related Data Allergies/Adverse Reactions: No Known Allergies Allergy (Verified 05/02/17 12:15) Past Medical History - Social History Smoking Status: Never Smoker Chew tobacco use (# tins/day): No Frequency of alcohol use: None Drug Abuse: None Family History: Reviewed & Not Pertinent Patient has suicidal ideation: No Patient has homicidal ideation: No Renal/ Medical History: Denies: Hx Peritoneal Dialysis - Immunizations Hx Diphtheria, Pertussis, Tetanus Vaccination: Yes Review of Systems - Review of Systems Notes: REVIEW OF SYSTEMS: CONSTITUTIONAL: -fevers, -chills EENT: -eye pain, -difficulty swallowing, -nasal congestion CARDIOVASCULAR: -chest pain, -syncope. RESPIRATORY: -cough, -SOB GASTROINTESTINAL: -abdominal pain, -nausea, -vomiting, -diarrhea GENITOURINARY: -dysuria, -hematuria MUSCULOSKELETAL: -back pain, -neck pain SKIN: -rash or skin lesions. HEMATOLOGIC: -easy bruising or bleeding. LYMPHATIC: -swollen, enlarged glands. NEUROLOGICAL: -altered mental status or loss of consciousness, -headache, - neurologic symptoms PSYCHIATRIC: -anxiety, -depression. ALL OTHER SYSTEMS REVIEWED AND NEGATIVE. Physical Exam - Vital signs Vitals: Temp Pulse Resp BP Pulse Ox 98.1 F 96 20 115/73 98 05/02/17 10:44 05/02/17 10:44 05/02/17 10:44 05/02/17 10:44 05/02/17 10:44 - Notes Notes: PHYSICAL EXAMINATION: GENERAL: Well-appearing, well-nourished and in no acute distress. HEAD: Atraumatic, normocephalic. EYES: Pupils equal round and reactive to light, extraocular movements intact, sclera anicteric, conjunctiva are normal. ENT: nares patent, oropharynx clear without exudates. Moist mucous membranes. NECK: Normal range of motion, supple without lymphadenopathy LUNGS: Breath sounds clear to auscultation bilaterally and equal. No wheezes rales or rhonchi. HEART: Regular rate and rhythm without murmurs ABDOMEN: Soft, nontender, normoactive bowel sounds. No guarding, no rebound. No masses appreciated. EXTREMITIES: Normal range of motion, no pitting or edema. No cyanosis. NEUROLOGICAL: Cranial nerves grossly intact. Normal speech, normal gait. Normal sensory and motor exams. PSYCH: Normal mood, normal affect. SKIN: Warm, Dry, normal turgor, no rashes or lesions noted. Course - Re-evaluation Re-evalutation: 05/02/17 12:40 Well-appearing female no acute distress interacting appropriately no acute distress negative orthostatics, given fluid resuscitation. Extensive lab work is no anemia no urinary tract infection was a dirty catch. Chest x-ray unremarkable EKG reassuring. Will discharge home improved follow-up with ENVIRONMENTAL ASSOCIATE - Vital Signs Vital signs: Temp Pulse Resp BP Pulse Ox 98.1 F 96 20 115/73 98 05/02/17 10:44 05/02/17 10:44 05/02/17 10:44 05/02/17 10:44 05/02/17 10:44 - Laboratory Result Diagrams: 05/02/17 11:22 05/02/17 11:22 Laboratory results interpreted by me: 05/02/17 05/02/17 05/02/17 11:22 11:22 11:22 WBC 14.4 H Seg Neutrophils % 78.9 H Lymphocytes % 12.3 L Absolute Neutrophils 11.4 H Total Protein 8.6 H Urine Urobilinogen 2.0 H Ur Leukocyte Esterase MODERATE H - EKG Interpretation by Me Additional EKG results interpreted by me: 05/02/17 12:39 Normal sinus rhythm 85 bpm, no ST elevation or depression, normal QRS, normal MN , normal QTC Discharge - Discharge Clinical Impression: Syncope Qualifiers: Syncope type: vasovagal syncope Qualified Code(s): R55 - Syncope and collapse Condition: Good Instructions: Syncopal Episode ([facility]) Additional Instructions: See your ENVIRONMENTAL ASSOCI[facility] Referrals: KATYA STEWARD MD [Primary Care Provider] - Follow up as needed
[2017-05-02 11:56] LABS: APPEARANCE,URINE SLIGHTLY-CLOUDY; BILIRUBIN,URINE NEGATIVE (NEGATIVE); COLOR,URINE YELLOW; GLUCOSE, URINE NEGATIVE (NEGATIVE); KETONES,URINE NEGATIVE (NEGATIVE); LEUKOCYTE ESTERASE,URINE MODERATE (NEGATIVE); NITRITE,URINE NEGATIVE (NEGATIVE); PROTEIN,URINE NEGATIVE (NEGATIVE); URINE SPECIFIC GRAVITY 1.016
[2017-05-02 12:09] LABS: ALANINE AMINOTRANSFERASE 19 U/L (9-52); ALBUMIN 4.6 g/dL (3.5-5.0); ALKALINE PHOSPHATASE 65 U/L (38-126); ANION GAP 13 (5-19); ASPARTATE AMINO TRANSFERASE 16 U/L (14-36); BILIRUBIN,DIRECT 0.3 mg/dL (0.0-0.4); BILIRUBIN,TOTAL 0.9 mg/dL (0.2-1.3); BLOOD UREA NITROGEN 7 mg/dL (7-20); CALCIUM 10.2 mg/dL (8.4-10.2); CARBON DIOXIDE 22 mmol/L (22-30); CHLORIDE 104 mmol/L (98-107); GLUCOSE 77 mg/dL (75-110); POTASSIUM 3.9 mmol/L (3.6-5.0); SODIUM 139.3 mmol/L (137-145); TOTAL PROTEIN 8.6 g/dL (6.3-8.2)
--- NOTE | 2017-05-02 12:28 | RADIOLOGY REPORT (SQ) ---
EXAM DESCRIPTION: CHEST PA/LAT COMPLETED DATE/TIME: 05/02/2017 12:20 pm REASON FOR STUDY: syncope COMPARISON: None. EXAM PARAMETERS: NUMBER OF VIEWS: two views TECHNIQUE: Digital Frontal and Lateral radiographic views of the chest acquired. RADIATION DOSE: NA LIMITATIONS: none FINDINGS: LUNGS AND PLEURA: No opacities, masses or pneumothorax. No pleural effusion. MEDIASTINUM AND HILAR STRUCTURES: No masses or contour abnormalities. HEART AND VASCULAR STRUCTURES: Heart normal size. No evidence for failure. BONES: No acute findings. HARDWARE: None in the chest. OTHER: No other significant finding. IMPRESSION: NO SIGNIFICANT RADIOGRAPHIC FINDING IN THE CHEST. TECHNICAL DOCUMENTATION: JOB ID: [id number] [employer]- All Rights Reserved Reading location - IP/workstation name: [facility]
[2017-05-02 12:43] VITALS: BP 110/70
--- NOTE | 2017-05-02 22:12 | EKG REPORT ---
SEVERITY:- NORMAL ECG - SINUS RHYTHM : Confirmed by: Ciaran Hutton 02-May-2017 22:11:26
== END 2017-05-02 12:53 | disposition home or self-care (01) ==
LOC: ER 10:10
DX: R55 Syncope and collapse (principal); R42 Dizziness and giddiness; W19.XXXA Unspecified fall, initial encounter; Z3A.14 14 weeks gestation of pregnancy
CPT/HCPCS: 93005; 99284; 96360; 36415; 85025; 80053; 81001; 84484; 71046; 93010; J7030

== ENCOUNTER 2018-03-11 18:48 | Emergency (ER) | payer OTHER, MEDICAID ==
--- NOTE | 2018-03-11 19:43 | ER Document Report ---
ED Medical Screen (RME) - General Chief Complaint: Nausea/Vomiting/Diarrhea Stated Complaint: VOMITING/CHEST PAIN Time Seen by Provider: 03/11/18 19:36 Notes: This 22-year-old female patient comes emergency room complaining of nausea vomiting diarrhea since 02/19/2018. She states she will vomit when she tries to eat. She states she is wondering if she might be and is on test but they have been negative. She has diarrhea that does not have a particularly bad odor, and does not smell like C. difficile. 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 She states she has had 6 episodes of diarrhea today. She has also developed generalized body aches and pains. I have greeted and performed a rapid initial assessment of this patient. A comprehensive ED assessment and evaluation of the patient, analysis of test results and completion of the medical decision making process will be conducted by additional ED providers. TRAVEL OUTSIDE OF THE [place] IN LAST 30 DAYS: No - Related Data Allergies/Adverse Reactions: No Known Allergies Allergy (Verified 05/02/17 12:15) Past Medical History - Social History Chew tobacco use (# tins/day): No Frequency of alcohol use: None Drug Abuse: None Renal/ Medical History: Denies: Hx Peritoneal Dialysis Past Surgical History: Reports: Hx Section - Immunizations Hx Diphtheria, Pertussis, Tetanus Vaccination: Yes Physical Exam - Vital signs Vitals: Temp Pulse Resp BP Pulse Ox 98.5 F 100 16 131/82 H 97 03/11/18 19:03 03/11/18 19:03 03/11/18 19:03 03/11/18 19:03 03/11/18 19:03 Course - Vital Signs Vital signs: Temp Pulse Resp BP Pulse Ox 98.5 F 100 16 131/82 H 97 03/11/18 19:03 03/11/18 19:03 03/11/18 19:03 03/11/18 19:03 03/11/18 19:03 Doctor's Discharge - Discharge Referrals: KATYA STEWARD MD [Primary Care Provider] - Follow up as needed
[2018-03-11 20:17] LABS: ABSOLUTE BASOPHILS # (AUTO) 0.1 10^3/uL (0.0-0.2); ABSOLUTE EOSINOPHILS # (AUTO) 0.1 10^3/uL (0.0-0.6); ABSOLUTE LYMPHOCYTES (AUTO) 2.3 10^3/uL (0.5-4.7); ABSOLUTE MONOCYTES (AUTO) 1.1 10^3/uL (0.1-1.4); ABSOLUTE NEUT (AUTO) 7.4 10^3/uL (1.7-8.2); BASOPHILS % (AUTO) 0.9 % (0-2); EOSINOPHILS % (AUTO) 1.2 % (0-6); HEMATOCRIT 36.6 % (36.0-47.0); MEAN CORPUSCULAR HEMOGLOBIN 24.6 pg (27.0-33.4); MEAN CORPUSCULAR HGB CONC 32.7 g/dL (32.0-36.0); MEAN CORPUSCULAR VOLUME 75 fl (80-97); MONOCYTES % (AUTO) 9.7 % (3-13); PLATELET COUNT 340 10^3/uL (150-450); RED BLOOD COUNT 4.85 10^6/uL (3.72-5.28); RED CELL DISTRIBUTION WIDTH 19.2 % (11.5-14.0); SEGMENTED NEUTROPHILS % (AUTO) 67.2 % (42-78); TOTAL CELLS COUNTED % (AUTO) 100 %; WHITE BLOOD COUNT 11.1 10^3/uL (4.0-10.5)
[2018-03-11 20:20] LABS: AMORPHOUS SEDIMENT,URINE TRACE /HPF; APPEARANCE,URINE SLIGHTLY-CLOUDY; BILIRUBIN,URINE NEGATIVE (NEGATIVE); COLOR,URINE YELLOW; GLUCOSE, URINE NEGATIVE (NEGATIVE); KETONES,URINE NEGATIVE (NEGATIVE); LEUKOCYTE ESTERASE,URINE SMALL (NEGATIVE); NITRITE,URINE NEGATIVE (NEGATIVE); PROTEIN,URINE NEGATIVE (NEGATIVE); URINE SPECIFIC GRAVITY 1.016
[2018-03-11 20:36] LABS: ALANINE AMINOTRANSFERASE 19 U/L (9-52); ALBUMIN 4.8 g/dL (3.5-5.0); ALKALINE PHOSPHATASE 85 U/L (38-126); ANION GAP 10 (5-19); ASPARTATE AMINO TRANSFERASE 18 U/L (14-36); BILIRUBIN,DIRECT 0.2 mg/dL (0.0-0.4); BILIRUBIN,TOTAL 0.8 mg/dL (0.2-1.3); BLOOD UREA NITROGEN 12 mg/dL (7-20); CALCIUM 9.8 mg/dL (8.4-10.2); CARBON DIOXIDE 24 mmol/L (22-30); CHLORIDE 103 mmol/L (98-107); GLUCOSE 99 mg/dL (75-110); POTASSIUM 4.1 mmol/L (3.6-5.0); SODIUM 137.4 mmol/L (137-145); TOTAL PROTEIN 8.7 g/dL (6.3-8.2)
[2018-03-11] MEDS ORDERED: ONDANSETRON HCL INJ/PF 4 MG/2 ML SDV IV ONE (20:43)
[2018-03-11] MEDS ORDERED: NORMAL SALINE 1000 ML 1,000 ML IV ONE (20:44)
[2018-03-11 22:06] VITALS: BP 126/66
--- NOTE | 2018-03-12 00:07 | RADIOLOGY REPORT (SQ) ---
EXAM DESCRIPTION: US TRANSVAGINAL COMPLETED DATE/TME: 03/11/2018 21:38 CLINICAL HISTORY: 22 years, Female, vag bleeding, COMPARISON: None. TECHNIQUE: LIMITATIONS: None. FINDINGS: No IUP. The endometrium is somewhat thickened, measuring 20 mm. There is a minimal amount of free fluid in the cul-de-sac. The ovaries were not visualized. No adnexal mass. IMPRESSION: No IUP. Possibilities are very early IUP, spontaneous and ectopic . Clinical correlation and follow-up are needed. copyright 2010 [employer]- All Rights Reserved
--- NOTE | 2018-03-12 00:28 | ER Document Report ---
ED General - General Chief Complaint: Nausea/Vomiting/Diarrhea Stated Complaint: VOMITING/CHEST PAIN Time Seen by Provider: 03/11/18 19:36 Notes: Patient is a 22-year-old female presents to the emergency department with generalized vomiting and diarrhea. Patient states her vomiting and diarrhea has been intermittent for the last couple of months. Patient states she vomited x4 today and had 6 episodes of diarrhea denying blood in either and had some generalized lower abdominal cramping which is why she presents to the emergency room. Patient also complaining of dysuria. Patient's denying any malodorous vaginal discharge but does state yesterday she noted some bright red blood after urinating and wiping. Patient denies use of tampons or pads, denies any vaginal bleeding today. Patient states she does think she had a subjective fever prior to arrival to the emergency department and did take Tylenol for same. Past medical history: None Medications: None Allergies: None Patient states last menstrual period was 02/10/2018. TRAVEL OUTSIDE OF THE [place] IN LAST 30 DAYS: No - Related Data Allergies/Adverse Reactions: No Known Allergies Allergy (Verified 05/02/17 12:15) Past Medical History - General Information source: Patient - Social History Smoking Status: Never Smoker Chew tobacco use (# tins/day): No Frequency of alcohol use: None Drug Abuse: None Family History: Reviewed & Not Pertinent Patient has suicidal ideation: No Patient has homicidal ideation: No Renal/ Medical History: Denies: Hx Peritoneal Dialysis Past Surgical History: Reports: Hx Section - Immunizations Hx Diphtheria, Pertussis, Tetanus Vaccination: Yes Review of Systems - Review of Systems Constitutional: See HPI EENT: No symptoms reported Cardiovascular: No symptoms reported Respiratory: No symptoms reported Gastrointestinal: See HPI Genitourinary: See HPI Female Genitourinary: See HPI Musculoskeletal: No symptoms reported Skin: No symptoms reported Hematologic/Lymphatic: No symptoms reported Neurological/Psychological: No symptoms reported Physical Exam - Vital signs Vitals: Temp Pulse Resp BP Pulse Ox 98.5 F 100 16 131/82 H 97 03/11/18 19:03 03/11/18 19:03 03/11/18 19:03 03/11/18 19:03 03/11/18 19:03 - Notes Notes: GENERAL: Alert, interacts well. No acute distress. HEAD: Normocephalic, atraumatic. EYES: Pupils equal, round, and reactive to light. Extraocular movements intact. ENT: Oral mucosa moist, tongue midline. NECK: Full range of motion. Supple. Trachea midline. LUNGS: Clear to auscultation bilaterally, no wheezes, rales, or rhonchi. No re spiratory distress. HEART: Regular rate and rhythm. No murmur ABDOMEN: Soft, non-tender. Non-distended. Bowel sounds present in all 4 quadrants. No McBurney's point tenderness, no Wilks sign noted. Minor suprapubic tenderness noted EXTREMITIES: Moves all 4 extremities spontaneously. No edema, normal radial and dorsalis pedis pulses bilaterally. No cyanosis. BACK: no cervical, thoracic, lumbar midline tenderness. No saddle anesthesia, normal distal neurovascular exam. No CVA tenderness bilaterally NEUROLOGICAL: Alert and oriented x3. Normal speech. cranial nerves II through XII grossly intact PSYCH: Normal affect, normal mood. SKIN: Warm, dry, normal turgor. No rashes or lesions noted. Course - Re-evaluation Re-evalutation: 03/12/18 00:25 Patient's initial lab work did reveal a positive test. Her beta hCG is 25.56 and her transvaginal ultrasound reveals no IUP, possibility is a very early IUP, spontaneous and not ectopic . Upon reexamination of the patient she denies any abdominal pain at this time. Discussed with her need to follow-up with women's health, primary care provider or return to the emergency room for trending of her hCG levels. Patient's labs did reveal a mild leukocytosis of 11.1, no signs of anemia, no signs of electrolyte abnormalities. Patient does complain of generalized dysuria does have leukocyte esterase and 19 WBCs +1 bacteria on her urine. Due to her being and having dysuria will treat for urinary tract infection. Patient continues without a fever, is non-tachycardic, denies any abdominal pain at this time, stable for discharge - Vital Signs Vital signs: Temp Pulse Resp BP Pulse Ox 98.5 F 100 13 126/66 H 99 03/11/18 19:03 03/11/18 19:03 03/11/18 22:01 03/11/18 22:01 03/11/18 22:01 - Laboratory Result Diagrams: 03/11/18 20:02 03/11/18 20:02 Laboratory results interpreted by me: 03/11/18 03/11/18 03/11/18 20:02 20:02 20:02 WBC 11.1 H MCV 75 L MCH 24.6 L RDW 19.2 H Total Protein 8.7 H Serum HCG, Qual POSITIVE H Beta HCG, Quant Urine Urobilinogen Ur Leukocyte Esterase 03/11/18 03/11/18 20:02 20:02 WBC MCV MCH RDW Total Protein Serum HCG, Qual Beta HCG, Quant 25.56 H Urine Urobilinogen 4.0 H Ur Leukocyte Esterase SMALL H Discharge - Discharge Clinical Impression: Urinary tract infection Qualifiers: Urinary tract infection type: acute cystitis Hematuria presence: without hematuria Qualified Code(s): N30.00 - Acute cystitis without hematuria Qualifiers: Weeks of gestation: less than 8 weeks Qualified Code(s): Z3A.01 - Less than 8 weeks gestation of Condition: Stable Disposition: HOME, SELF-CARE Instructions: Cephalexin ([facility]), Urinary Tract Infection ([facility]) Additional Instructions: As we discussed you have been seen and treated in the emergency department for a positive test and a urinary tract infection. Please continued care with [facility], your primary care provider, return to the emergency room for trending hCG levels. Please also return to the emergency room should you have any increased lower abdominal pain, vaginal discharge, weakness, dizziness or any other concerns. Please take antibiotics as prescribed. Prescriptions: Cephalexin Monohydrate [Keflex 500 mg Capsule] 500 mg PO BID 7 Days #14 capsule Referrals: KATYA STEWARD MD [Primary Care Provider] - Follow up as needed [facility] [Provider Group] - Follow up as needed [facility] [Provider Group] - Follow up as needed
[2018-03-12] MEDS ORDERED: CEPHALEXIN 500 MG CAPSULE PO ONE (00:29)
== END 2018-03-12 00:39 | disposition home or self-care (01) ==
LOC: ER 18:48
DX: O23.11 Infections of bladder in pregnancy, first trimester (principal); N30.00 Acute cystitis without hematuria; R11.2 Nausea with vomiting, unspecified; R19.7 Diarrhea, unspecified; Z3A.01 Less than 8 weeks gestation of pregnancy
CPT/HCPCS: 99284; 96372; 96361; 96374; 86900; 86901; 36415; 87086; 86850; 84702; 84703; 85025; 87088; 80053; 81001; 87186; 76817; 93976; J2790; J2405; J7030

== ENCOUNTER 2018-03-24 15:28 | Emergency (ER) | payer OTHER, MEDICAID ==
--- NOTE | 2018-03-24 16:02 | ER Document Report ---
ED Medical Screen (RME) - General Chief Complaint: Vaginal Bleeding Stated Complaint: BACK PAIN Time Seen by Provider: 03/24/18 15:55 Primary Care Provider: KATYA STEWARD MD [Primary Care Provider] - Follow up as needed Notes: 22-year-old female patient comes emerged from complaining of low back pain after picking up a heavy person off the floor at work a week ago. She is reports shortly after that she developed heavy vaginal bleeding and cramping. She also states she is still having chest pain since a visit here on 03/11/2018. On that visit 2 weeks ago, she had a positive hCG with a hormone level of 25.56, she had a urinary tract infection that ended up growing out Proteus and was put on Keflex for this. She also had an ultrasound on that day but with a hormone level of only 25, there was nothing seen. She was on the Depakote shot, but she is unsure about how long ago the last shot was but I would suspect that slightly over 3 months ago. I have greeted and performed a rapid initial assessment of this patient. A comprehensive ED assessment and evaluation of the patient, analysis of test results and completion of the medical decision making process will be conducted by additional ED providers. TRAVEL OUTSIDE OF THE [place] IN LAST 30 DAYS: No - Related Data Allergies/Adverse Reactions: No Known Allergies Allergy (Verified 05/02/17 12:15) Past Medical History Renal/ Medical History: Denies: Hx Peritoneal Dialysis Past Surgical History: Reports: Hx Section - Immunizations Hx Diphtheria, Pertussis, Tetanus Vaccination: Yes Physical Exam - Vital signs Vitals: Temp Pulse Resp BP Pulse Ox 98.3 F 103 H 16 135/87 H 99 03/24/18 15:37 03/24/18 15:37 03/24/18 15:37 03/24/18 15:37 03/24/18 15:37 Course - Vital Signs Vital signs: Temp Pulse Resp BP Pulse Ox 98.3 F 103 H 16 135/87 H 99 03/24/18 15:37 03/24/18 15:37 03/24/18 15:37 03/24/18 15:37 03/24/18 15:37 Doctor's Discharge - Discharge Referrals: KATYA STEWARD MD [Primary Care Provider] - Follow up as needed
[2018-03-24 17:39] LABS: ABSOLUTE BASOPHILS # (AUTO) 0.1 10^3/uL (0.0-0.2); ABSOLUTE LYMPHOCYTES (AUTO) 1.7 10^3/uL (0.5-4.7); ABSOLUTE NEUT (AUTO) 8.8 10^3/uL (1.7-8.2); EOSINOPHILS % (AUTO) 0.4 % (0-6); HEMATOCRIT 34.7 % (36.0-47.0); HEMOGLOBIN 11.5 g/dL (12.0-15.5); LYMPHOCYTES % (AUTO) 14.8 % (13-45); MEAN CORPUSCULAR HGB CONC 33.1 g/dL (32.0-36.0); MEAN CORPUSCULAR VOLUME 75 fl (80-97); MONOCYTES % (AUTO) 8.8 % (3-13); PLATELET COUNT 354 10^3/uL (150-450); RED BLOOD COUNT 4.61 10^6/uL (3.72-5.28); RED CELL DISTRIBUTION WIDTH 19.8 % (11.5-14.0); TOTAL CELLS COUNTED % (AUTO) 100 %; WHITE BLOOD COUNT 11.8 10^3/uL (4.0-10.5)
[2018-03-24 17:41] LABS: APPEARANCE,URINE SLIGHTLY-CLOUDY; BILIRUBIN,URINE NEGATIVE (NEGATIVE); COLOR,URINE YELLOW; GLUCOSE, URINE NEGATIVE (NEGATIVE); KETONES,URINE NEGATIVE (NEGATIVE); LEUKOCYTE ESTERASE,URINE MODERATE (NEGATIVE); NITRITE,URINE NEGATIVE (NEGATIVE); PROTEIN,URINE NEGATIVE (NEGATIVE); URINE SPECIFIC GRAVITY 1.017; UROBILINOGEN,URINE NEGATIVE mg/dL (<2.0)
--- NOTE | 2018-03-24 17:56 | RADIOLOGY REPORT (SQ) ---
EXAM DESCRIPTION: U/S OB TRANSVAG W/DOPPLER COMPLETED DATE/TIME: 03/24/2018 5:43 pm REASON FOR STUDY: pelvic pain, recently elevated HCG levels COMPARISON: Pelvic ultrasound 03/11/2018. TECHNIQUE: Transvaginal static and realtime grayscale images acquired of the pelvis. All images stor ed on PACs. CLINICAL AGE: 6 weeks 1 day bHCG: Pending. LIMITATIONS: None. FINDINGS: UTERUS: The uterus measures 12.3 x 6.0 x 6.8 cm. The cervix is closed and measures 3.6 cm in length. GESTATIONAL SAC: Normal shape. YOLK SAC: No. POLE: None present. RIGHT ADNEXA: Ovary not identified due to poor acoustical window. No adnexal free fluid. No adnexal masses. LEFT ADNEXA: Ovary not identified due to poor acoustical window. No adnexal free fluid. No adnexal masses. FREE FLUID: None. IMPRESSION: POSSIBLE EARLY INTRAUTERINE . CONSIDER FOLLOWUP BHCG AND/OR ULTRASOUND FOR VERIFICATION AND TO EXCLUDE ECTOPIC . Trimester of : First - 0 to 13 weeks. TECHNICAL DOCUMENTATION: JOB ID: [id number] 2010 [employer]- All Rights Reserved Reading location - IP/workstation name: [email or web address]
--- NOTE | 2018-03-24 18:46 | ER Document Report ---
ED GI/ - General Chief Complaint: Vaginal Bleeding Stated Complaint: BACK PAIN Time Seen by Provider: 03/24/18 15:55 Primary Care Provider: KATYA STEWARD MD [ACTIVE STAFF] - Follow up as needed TRAVEL OUTSIDE OF THE [place] IN LAST 30 DAYS: No - Related Data Allergies/Adverse Reactions: No Known Allergies Allergy (Verified 05/02/17 12:15) Past Medical History - Social History Smoking Status: Never Smoker Frequency of alcohol use: None Drug Abuse: None Family History: Reviewed & Not Pertinent Patient has suicidal ideation: No Patient has homicidal ideation: No Renal/ Medical History: Denies: Hx Peritoneal Dialysis Past Surgical History: Reports: Hx Section - Immunizations Hx Diphtheria, Pertussis, Tetanus Vaccination: Yes Physical Exam - Vital signs Vitals: Temp Pulse Resp BP Pulse Ox 98.3 F 103 H 16 135/87 H 99 03/24/18 15:37 03/24/18 15:37 03/24/18 15:37 03/24/18 15:37 03/24/18 15:37 Course - Vital Signs Vital signs: Temp Pulse Resp BP Pulse Ox 98.3 F 103 H 16 135/87 H 99 03/24/18 15:37 03/24/18 15:37 03/24/18 15:37 03/24/18 15:37 03/24/18 15:37 - Laboratory Result Diagrams: 03/24/18 17:04 Laboratory results interpreted by me: 03/24/18 03/24/18 03/24/18 16:15 17:04 17:04 WBC 11.8 H Hgb 11.5 L Hct 34.7 L MCV 75 L MCH 25.0 L RDW 19.8 H Absolute Neutrophils 8.8 H Beta HCG, Quant 9674.70 H Ur Leukocyte Esterase MODERATE H Discharge - Discharge Clinical Impression: Vaginal bleeding affecting early Condition: Stable Disposition: HOME, SELF-CARE Additional Instructions: Your hCG levels are rising significantly. This may mean that you have an early , or are miscarrying. On the ultrasound the is not seen in the uterus at this time. This means it is also possible that you could have an early tubal . It is very important that you keep your follow-up appointment you have scheduled for 03/28/18 with [facility]. They will need to redraw your hCG levels and most likely repeat a transvaginal ultrasound. Please return to the emergency department immediately if you develop severe lower abdominal pain, you begin bleeding through more than 1 pad per hour for more than 2 hours, or any other symptom that is concerning to you. Referrals: KATYA STEWARD MD [ACTIVE STAFF] - Follow up as needed
[2018-03-24 19:15] VITALS: BP 121/79
== END 2018-03-24 19:15 | disposition home or self-care (01) ==
LOC: ER 15:28
DX: O46.91 Antepartum hemorrhage, unspecified, first trimester (principal); O26.891 Other specified pregnancy related conditions, first trimester; M54.9 Dorsalgia, unspecified; Z3A.01 Less than 8 weeks gestation of pregnancy
CPT/HCPCS: 36415; 76817; 81001; 84702; 85025; 93976; 99284